=== PATIENT | male | born 1950 | race Caucasian/White ===

== ENCOUNTER → 2019-09-04 09:00 | Outpatient (BNVA) | payer MEDICARE, SELFPAY | PROVIDERS: Family Provider Nurse Practitioner; PCP Nurse Practitioner; Visit Provider Urology | DX: R97.20 Elevated prostate specific antigen [PSA] (principal); N99.89 Other postprocedural complications and disorders of genitourinary system | CPT/HCPCS: 81001 ==

== ENCOUNTER → 2020-02-02 10:12 | Outpatient (BNVA) | payer MEDICARE, SELFPAY | PROVIDERS: Family Provider Nurse Practitioner; PCP Nurse Practitioner; Visit Provider Nurse Practitioner Family | DX: E78.5 Hyperlipidemia, unspecified (principal); I10 Essential (primary) hypertension; E11.9 Type 2 diabetes mellitus without complications; R97.20 Elevated prostate specific antigen [PSA] | CPT/HCPCS: 80053; 80061; 83036; 84153; 85025 ==

== ENCOUNTER → 2020-03-04 08:46 | Outpatient (BNVA) | payer MEDICARE, SELFPAY | PROVIDERS: Family Provider Nurse Practitioner; PCP Nurse Practitioner; Visit Provider Urology | DX: R97.20 Elevated prostate specific antigen [PSA] (principal) | CPT/HCPCS: 81001 ==

== ENCOUNTER → 2020-07-26 09:22 | Outpatient (BNVA) | payer MEDICARE, SELFPAY | PROVIDERS: Family Provider Nurse Practitioner; PCP Nurse Practitioner; Visit Provider Nurse Practitioner | DX: Z20.828 Contact with and (suspected) exposure to other viral communicable diseases (principal); E11.9 Type 2 diabetes mellitus without complications | CPT/HCPCS: 80053; 80061; 83036; 87635 ==

== ENCOUNTER → 2020-09-02 08:56 | Outpatient (BNVA) | payer MEDICARE, SELFPAY | PROVIDERS: Family Provider Nurse Practitioner; PCP Nurse Practitioner; Visit Provider Urology | DX: R97.20 Elevated prostate specific antigen [PSA] (principal); N40.0 Benign prostatic hyperplasia without lower urinary tract symptoms | CPT/HCPCS: 81003; 84153 ==

== ENCOUNTER → 2021-02-01 11:04 | Outpatient (BNVA) | payer MEDICARE, SELFPAY | PROVIDERS: Family Provider Nurse Practitioner; PCP Nurse Practitioner; Visit Provider Nurse Practitioner | DX: E11.9 Type 2 diabetes mellitus without complications (principal); E78.5 Hyperlipidemia, unspecified; I10 Essential (primary) hypertension; R97.20 Elevated prostate specific antigen [PSA] | CPT/HCPCS: 80053; 80061; 83036; 84153 ==

== ENCOUNTER → 2021-03-08 07:55 | Outpatient (BNVA) | payer MEDICARE, SELFPAY | PROVIDERS: Family Provider Nurse Practitioner; PCP Nurse Practitioner; Visit Provider Urology | DX: N40.0 Benign prostatic hyperplasia without lower urinary tract symptoms (principal); R97.20 Elevated prostate specific antigen [PSA] | CPT/HCPCS: 81003 ==

== ENCOUNTER → 2021-07-28 08:29 | Outpatient (BNVA) | payer MEDICARE, SELFPAY | PROVIDERS: Family Provider Nurse Practitioner; PCP Nurse Practitioner; Visit Provider Nurse Practitioner | DX: E11.9 Type 2 diabetes mellitus without complications (principal); I10 Essential (primary) hypertension; E78.5 Hyperlipidemia, unspecified; R97.20 Elevated prostate specific antigen [PSA] | CPT/HCPCS: 80053; 80061; 82043; 83036; 84153; 85025 ==

== ENCOUNTER → 2021-08-25 12:02 | Outpatient (BNVA) | payer MEDICARE, SELFPAY | PROVIDERS: Family Provider Nurse Practitioner; PCP Nurse Practitioner; Visit Provider Urology | DX: N40.1 Benign prostatic hyperplasia with lower urinary tract symptoms; R33.8 Other retention of urine; R97.20 Elevated prostate specific antigen [PSA]; N20.1 Calculus of ureter | CPT/HCPCS: 81003 ==

== ENCOUNTER 2021-08-27 00:41 | Emergency (ER) | payer MEDICARE, SELFPAY ==
[2021-08-27 00:54] VITALS: BP 126/63; PULSE 84; RESP 20; TEMP 36; O2SAT 94; BMI 27.9
--- NOTE | 2021-08-27 01:03 | W.ED.MALEGU ---
Documented by User: EMETERIO Burton 08/27/21 02:15 HPI - Male Genitourinary General: Chief complaint: Urogenital-Male Stated complaint: Cathader moved\Fever Blood in Urine Time Seen by Provider: 08/27/21 00:50 Source: patient and family Mode of arrival: ambulatory Limitations: no limitations History of Present Illness: HPI Narrative: Patient is a 70-year-old male who presents to ED today for concerns that his Velasquez catheter is not draining appropriately. Family states that Velasquez was placed approximately [address] Martinez after he began experiencing urinary retention. Dr. Martinez placed a 16 [place] coud? in his office. states earlier today she began noticing the urine in his bag was very dark brown in color. They contacted Dr. Martinez's office who called in a prescription for Levaquin which they have not filled. Family states a few hours ago she noticed the bag was no longer draining and urine was going around the Velasquez. She also noticed a clot near the urethral meatus. Family states he hasn't drank much fluids today. Family states he was messing the catheter earlier today and wonders if that could be why it's not draining. Complaint: other (velasquez issue) Onset (ago): hour(s) Associated symptoms: Deny nausea or vomiting Review of Systems Const: Denies: fever(s), chills, body aches, fatigue or malaise GI: Denies: abdominal pain, nausea, vomiting or diarrhea : Reports: other (dark brown urine; velasquez not draining appropriately); Denies: flank pain PFSH ED PFSH: Medical History AAA (abdominal aortic aneurysm) Acute urinary retention BPH loc w urin obs/LUTS Elevated PSA Hypertension Surgical History Status post cataract extraction and insertion of intraocular lens BILATERAL Family History Father , AT AGE 92 Hypertension Parkinson disease Mother , AT AGE 76-HEART ATTACK Diabetes Hypertension Stroke Sister Diabetes Brother Diabetes Social History Second hand smoke exposure: No Smoking risk assessment/counseling performed?: No Alcohol intake: never Desire information about alcohol rehabilitation?: No Counseling given: No Desire information about substance/drug rehabilitation?: No Counseling given: No Adopted: No Caregiver/support person: No Lives independently: Yes Household members: spouse Marital status: Number of children: 2 service: No Current occupational status: employed Current occupation: SELF EMPLOYED-FARMING Pets and animals: Yes History of recent travel: No Current gender identity: Male Physical Exam Const: COMMON NORMALS: no limitations and alert GENERAL APPEARANCE: cooperative and disheveled ORIENTATION/CONSCIOUSNESS: Yes awake, Yes oriented to person, Yes oriented to place and Yes oriented to time OTHER: patient is odorous GI: COMMON NORMALS: Normal to inspection, nondistended, normoactive bowel sounds present, Soft to palpation, non-tender, No hepatosplenomegaly present and no masses INSPECTION: Yes normal to inspection and Yes other (bladder not distended) PALPATION: Yes Soft to palpation and Yes No hepatosplenomegaly present : COMMON NORMALS: Yes no CVA tenderness BLADDER/KIDNEY EXAM: Yes no CVA tenderness OTHER: there is a small clot at uretral meatus; patient has a few mls of dark brown urine in velasquez leg bag; patient has soiled himself and there is fecal matter within his adult brief Back/Pelvis: COMMON NORMALS: no CVA tenderness Neuro: SENSORIUM/ORIENTATION: Yes alert, Yes oriented to person, Yes oriented to place and Yes oriented to time Course ED course: Will try irrigating/repositioning catheter. Family states it was difficult to get catheter inserted therefore I don't want to remove/attempt replacement if at all possible Vital Signs: Vital signs: Vital Signs Temperature 96.8 F L 08/27/21 00:54 Pulse Rate 84 08/27/21 00:54 Respiratory Rate 20 H 08/27/21 00:54 Blood Pressure 126/63 08/27/21 00:54 Pulse Oximetry 94 08/27/21 00:54 MDM - Male MDM Narrative: Medical decision making narrative: Catheter was irrigated by RN and large clot removed. Catheter was then manually irrigated until clear. Patient was given a liter of fluids and IV abx as his UA was overwhelmingly positive for UTI-will culture. Recommend he fill RX that Dr. Martinez called in (will write another one in case they have any issues filling it) and recommend lots of fluid intake during the day to help keep velasquez draining. Patient was checked on several times and velasquez continues to drain well with clear urine. Patient is not febrile or tachycardic. Mild white count at 13.3. BUN/Cr normal. Lab Data: Labs: Lab Results 08/27/21 08/27/21 08/27/21 01:04 01:04 01:21 WBC 13.3 10^3/uL H 10 ^3/uL (4.0-10.0) RBC 4.65 10^6/uL 10^6 /uL (4.1-5.3) Hgb 14.2 g/dL g/dL (11.7-16.6) Hct 42.7 % % (42.0-52.0) MCV 91.8 fl fl (80-94) MCH 30.5 pg pg (28.0-34.0) MCHC 33.3 g/dL g/dL (30.0-36.0) RDW 12.3 % % (12.1-15.1) Plt Count 140 10^3/cmm 10^3 /cmm (130-400) MPV 10.6 fL H fL (7.4-10.4) Neut % (Auto) 84.6 % % Lymph % (Auto) 7.9 % % [place] % (Auto) 6.5 % % Eos % (Auto) 0.0 % % Baso % (Auto) 0.3 % % Neut # (Auto) 11.24 10^3/uL H 1 0^3/uL (1.8-7.7) Lymph # (Auto) 1.1 10^3/uL 10^3/ uL (0.8-4.8) [place] # (Auto) 0.9 10^3/uL 10^3/ uL (0.2-0.9) Eos # (Auto) 0.0 10^3/uL 10^3/ uL (0.0-0.8) Baso # (Auto) 0.0 10^3/uL 10^3/ uL (0.0-0.1) Nucleated RBC % (a uto) 0 % % Nucleated RBCs # 0.0 /100WBC /100W BC Sodium 135 mmol/L L mmol /L (136-145) Potassium 3.5 mmol/L mmol/L (3.5-5.1) Chloride 99 mmol/L mmol/L (98-107) Carbon Dioxide 23 mmol/L mmol/L (22-29) Anion Gap 16.5 (5-19) BUN 22 mg/dL mg/dL (8-23) Creatinine 1.1 mg/dL mg/dL (0.7-1.2) GFR Calculation 66.4 mL/min L mL/ min (90-130) Glucose 154 mg/dL H mg/dL (65-115) Calculated Osmolal ity 286 mOsm/kg mOsm/ kg (285-295) Calcium 8.3 mg/dL L mg/dL (8.5-10.5) Total Bilirubin 0.3 mg/dL mg/dL (0.15-1.2) AST 19 U/L U/L (0-40) ALT 16 U/L U/L (0-41) Alkaline Phosphata se 56 IU/L IU/L (40-130) Total Protein 6.3 g/dL L g/dL (6.6-8.7) Albumin 4.0 g/dL g/dL (3.5-5.2) Globulin 2.3 g/dL g/dL (1.3-4.6) Urine Color Shantell (Yellow) Urine Appearance Sl cloudy A (CLEAR) Urine pH 5 (5-7) Ur Specific Gravit y 1.020 (1.005-1.030) Urine Protein 3+ H (Negative) Urine Glucose (UA) Norm (Normal) Urine Ketones 1+ H (Negative) Urine Blood 3+ H (Negative) Urine Nitrate Positive H (Negative) Urine Bilirubin 1+ H (Negative) Urine Urobilinogen 4 mg/dL H mg/dL (Negative) Ur Leukocyte Joselyn ase 2+ H (Negative) Urine RBC Too numerous to c nt /hpf H /hpf (0-2) Urine WBC Too numerous to c nt /hpf H /hpf (0-5) Ur Squamous Epith Cells 0-4 /hpf H /hpf (0-5) Amorphous Sediment Not Reportable Urine Bacteria 4+ /hpf H /hpf (NONE) Discharge Plan Discharge Patient Disposition: Home Clinical Impression: Catheter-associated urinary tract infection Qualifiers: Indwelling urinary catheter type: indwelling urethral catheter Encounter type: initial encounter Qualified Code(s): T83.511A - Infection and inflammatory reaction due to indwelling urethral catheter, initial encounter Complication of Velasquez catheter Qualifiers: Encounter type: initial encounter Qualified Code(s): T83.9XXA - Unspecified complication of genitourinary prosthetic device, implant and graft, initial encounter Condition: Stable Prescriptions: New levofloxacin 500 mg tablet 500 mg PO DAILY 7 Days Qty: 7 RF: 0 No Action multivitamin Tablet 1 tab PO QAM RF: 0 glucosamine HCl 500 mg tablet 500 mg PO QDAY RF: 0 urinozinc PO RF: 0 tamsulosin 0.4 mg capsule 0.4 mg PO BID Qty: 60 RF: 12 levofloxacin 500 mg tablet 500 mg PO DAILY Qty: 7 RF: 1 losartan-hydrochlorothiazide [Hyzaar] 50-12.5 mg tablet 1 tab PO QDAY Qty: 90 RF: 1 atorvastatin [Lipitor] 10 mg tablet 10 mg PO QDAY Qty: 90 RF: 1 Discharge Orders: Discharge ED (Routine); Ordered 08/27/21 Ordered By: Sanjuanita Fonseca Referrals: Dilma Vivar, ROBERT [Primary Care Provider] - Activity Restrictions/Additional Instructions: Please fill/start antibiotics tomorrow. Contact Dr. Martinez's office on Sunday to schedule follow-up visit. You need to return to the emergency department immediately for any further episodes of the Velasquez catheter not draining appropriately, severe abdominal/flank pain, fevers greater than 100.4, generally feeling unwell, inability to hold down your antibiotics, or any other concerns you may have. Coding Level of Care Code ED Ear Nose Throat Surgeon for Chg Fwd Exam Expanded Problem Focused Documented by User: Alex Castro DO 08/27/21 21:12 HPI - Male Genitourinary General: Chief complaint: Urogenital-Male Stated complaint: Cathader moved\Fever Blood in Urine Time Seen by Provider: 08/27/21 00:50 PFSH ED PFSH: Medical History AAA (abdominal aortic aneurysm) Acute urinary retention BPH loc w urin obs/LUTS Elevated PSA Hypertension Surgical History Status post cataract extraction and insertion of intraocular lens BILATERAL Family History Father , AT AGE 92 Hypertension Parkinson disease Mother , AT AGE 76-HEART ATTACK Diabetes Hypertension Stroke Sister Diabetes Brother Diabetes Social History Second hand smoke exposure: No Smoking risk assessment/counseling performed?: No Alcohol intake: never Desire information about alcohol rehabilitation?: No Counseling given: No Desire information about substance/drug rehabilitation?: No Counseling given: No Adopted: No Caregiver/support person: No Lives independently: Yes Household members: spouse Marital status: Number of children: 2 service: No Current occupational status: employed Current occupation: SELF EMPLOYED-FARMING Pets and animals: Yes History of recent travel: No Current gender identity: Male Course Vital Signs: Vital signs: Vital Signs Temperature 96.8 F L 08/27/21 00:54 Pulse Rate 84 08/27/21 00:54 Respiratory Rate 20 H 08/27/21 00:54 Blood Pressure 126/63 08/27/21 00:54 Pulse Oximetry 94 08/27/21 00:54 MDM - Male MDM Narrative: Medical decision making narrative: This patient was originally seen by Mrs. Fonseca?JEREMIAH Castro. I agree with her history, evaluation, and treatment. Lab Data: Labs: Lab Results 08/27/21 08/27/21 08/27/21 01:04 01:04 01:21 WBC 13.3 10^3/uL H 10 ^3/uL (4.0-10.0) RBC 4.65 10^6/uL 10^6 /uL (4.1-5.3) Hgb 14.2 g/dL g/dL (11.7-16.6) Hct 42.7 % % (42.0-52.0) MCV 91.8 fl fl (80-94) MCH 30.5 pg pg (28.0-34.0) MCHC 33.3 g/dL g/dL (30.0-36.0) RDW 12.3 % % (12.1-15.1) Plt Count 140 10^3/cmm 10^3 /cmm (130-400) MPV 10.6 fL H fL (7.4-10.4) Neut % (Auto) 84.6 % % Lymph % (Auto) 7.9 % % [place] % (Auto) 6.5 % % Eos % (Auto) 0.0 % % Baso % (Auto) 0.3 % % Neut # (Auto) 11.24 10^3/uL H 1 0^3/uL (1.8-7.7) Lymph # (Auto) 1.1 10^3/uL 10^3/ uL (0.8-4.8) [place] # (Auto) 0.9 10^3/uL 10^3/ uL (0.2-0.9) Eos # (Auto) 0.0 10^3/uL 10^3/ uL (0.0-0.8) Baso # (Auto) 0.0 10^3/uL 10^3/ uL (0.0-0.1) Nucleated RBC % (a uto) 0 % % Nucleated RBCs # 0.0 /100WBC /100W BC Sodium 135 mmol/L L mmol /L (136-145) Potassium 3.5 mmol/L mmol/L (3.5-5.1) Chloride 99 mmol/L mmol/L (98-107) Carbon Dioxide 23 mmol/L mmol/L (22-29) Anion Gap 16.5 (5-19) BUN 22 mg/dL mg/dL (8-23) Creatinine 1.1 mg/dL mg/dL (0.7-1.2) GFR Calculation 66.4 mL/min L mL/ min (90-130) Glucose 154 mg/dL H mg/dL (65-115) Calculated Osmolal ity 286 mOsm/kg mOsm/ kg (285-295) Calcium 8.3 mg/dL L mg/dL (8.5-10.5) Total Bilirubin 0.3 mg/dL mg/dL (0.15-1.2) AST 19 U/L U/L (0-40) ALT 16 U/L U/L (0-41) Alkaline Phosphata se 56 IU/L IU/L (40-130) Total Protein 6.3 g/dL L g/dL (6.6-8.7) Albumin 4.0 g/dL g/dL (3.5-5.2) Globulin 2.3 g/dL g/dL (1.3-4.6) Urine Color Shantell (Yellow) Urine Appearance Sl cloudy A (CLEAR) Urine pH 5 (5-7) Ur Specific Gravit y 1.020 (1.005-1.030) Urine Protein 3+ H (Negative) Urine Glucose (UA) Norm (Normal) Urine Ketones 1+ H (Negative) Urine Blood 3+ H (Negative) Urine Nitrate Positive H (Negative) Urine Bilirubin 1+ H (Negative) Urine Urobilinogen 4 mg/dL H mg/dL (Negative) Ur Leukocyte Joselyn ase 2+ H (Negative) Urine RBC Too numerous to c nt /hpf H /hpf (0-2) Urine WBC Too numerous to c nt /hpf H /hpf (0-5) Ur Squamous Epith Cells 0-4 /hpf H /hpf (0-5) Amorphous Sediment Not Reportable Urine Bacteria 4+ /hpf H /hpf (NONE) Discharge Plan Discharge Patient Disposition: Home Clinical Impression: Catheter-associated urinary tract infection Qualifiers: Indwelling urinary catheter type: indwelling urethral catheter Encounter type: initial encounter Qualified Code(s): T83.511A - Infection and inflammatory reaction due to indwelling urethral catheter, initial encounter Complication of Velasquez catheter Qualifiers: Encounter type: initial encounter Qualified Code(s): T83.9XXA - Unspecified complication of genitourinary prosthetic device, implant and graft, initial encounter Condition: Stable Prescriptions: New levofloxacin 500 mg tablet 500 mg PO DAILY 7 Days Qty: 7 RF: 0 No Action multivitamin Tablet 1 tab PO QAM RF: 0 glucosamine HCl 500 mg tablet 500 mg PO QDAY RF: 0 urinozinc PO RF: 0 tamsulosin 0.4 mg capsule 0.4 mg PO BID Qty: 60 RF: 12 levofloxacin 500 mg tablet 500 mg PO DAILY Qty: 7 RF: 1 losartan-hydrochlorothiazide [Hyzaar] 50-12.5 mg tablet 1 tab PO QDAY Qty: 90 RF: 1 atorvastatin [Lipitor] 10 mg tablet 10 mg PO QDAY Qty: 90 RF: 1 Discharge Orders: Discharge ED (Routine); Ordered 08/27/21 Ordered By: Sanjuanita Fonseca Referrals: Dilma Vivar, ADMINISTRATIVE SUPPORT MANAGER-C [Primary Care Provider] - Activity Restrictions/Additional Instructions: Please fill/start antibiotics tomorrow. Contact Dr. Martinez's office on Sunday to schedule follow-up visit. You need to return to the emergency department immediately for any further episodes of the Velasquez catheter not draining appropriately, severe abdominal/flank pain, fevers greater than 100.4, generally feeling unwell, inability to hold down your antibiotics, or any other concerns you may have. Coding Level of Care Code ED Ear Nose Throat Surgeon for Chg Fwd Exam Expanded Problem Focused
[2021-08-27 01:09] LABS: Basophils % 0.3 %; Hematocrit 42.7 % (42.0-52.0); Hemoglobin 14.2 g/dL (11.7-16.6); Lymphocytes # 1.1 10^3/uL (0.8-4.8); Lymphocytes % 7.9 %; Mean Corpuscular HGB Conc 33.3 g/dL (30.0-36.0); Mean Corpuscular Hemoglobin 30.5 pg (28.0-34.0); Mean Corpuscular Volume 91.8 fl (80-94); Mean Platelet Volume 10.6 fL (7.4-10.4); Monocytes # 0.9 10^3/uL (0.2-0.9); Monocytes % 6.5 %; Neutrophils # 11.24 10^3/uL (1.8-7.7); Neutrophils % 84.6 %; Nucleated Red Blood Cells % 0 %; Platelet Count 140 10^3/cmm (130-400); Red Blood Count 4.65 10^6/uL (4.1-5.3); Red Cell Distribution Width 12.3 % (12.1-15.1); White Blood Count 13.3 10^3/uL (4.0-10.0)
[2021-08-27] MEDS: sodium chloride 0.9% 1,000 ML 999 ML IV ×2 (01:20→02:22)
[2021-08-27 01:35] LABS: Alanine Aminotransferase 16 U/L (0-41); Alkaline Phosphatase 56 IU/L (40-130); Anion Gap 16.5 (5-19); Aspartate Amino Transferase 19 U/L (0-40); Blood Urea Nitrogen 22 mg/dL (8-23); Calcium 8.3 mg/dL (8.5-10.5); Carbon Dioxide 23 mmol/L (22-29); Chloride 99 mmol/L (98-107); Globulin 2.3 g/dL (1.3-4.6); Glomerular Filtration Rate 66.4 mL/min (90-130); Glucose 154 mg/dL (65-115); Osmolality Calculated 286 mOsm/kg (285-295); Potassium 3.5 mmol/L (3.5-5.1); Sodium 135 mmol/L (136-145); Total Bilirubin 0.3 mg/dL (0.15-1.2); Total Protein 6.3 g/dL (6.6-8.7)
[2021-08-27 02:01] LABS: Add Urine Microscopic? YES; Bilirubin Urine 1+ (Negative); Blood Urine 3+ (Negative); Glucose Urine UA Norm (Normal); Ketones Urine 1+ (Negative); Leukocyte Esterase Urine 2+ (Negative); Nitrate Urine Positive (Negative); Protein Urine 3+ (Negative); Urine Color Amber (Yellow); Urobilinogen Urine 4 mg/dL (Negative); pH Urine 5 (5-7)
[2021-08-27 02:08] LABS: Add Urine Culture? Yes; Bacteria Urine 4+ /hpf; RBC Urine TOO NUMEROUS TO CNT /hpf (0-2); Squamous Epithelial Cell Urine 0-4 /hpf (0-5); WBC Urine TOO NUMEROUS TO CNT /hpf (0-5)
[2021-08-27] MEDS: levofloxacin-dextrose 5 % 500 MG/100 ML PREMIX 100 MG IV (02:17)
== END 2021-08-27 03:25 | disposition home or self-care (01) ==
PROVIDERS: Emergency Provider Physician Assistant; PCP Nurse Practitioner
DX: T83.511A Infection and inflammatory reaction due to indwelling urethral catheter, initial encounter (principal); T83.098A Other mechanical complication of other urinary catheter, initial encounter; Y73.8 Miscellaneous gastroenterology and urology devices associated with adverse incidents, not elsewhere classified; I71.4 Abdominal aortic aneurysm, without rupture; N40.1 Benign prostatic hyperplasia with lower urinary tract symptoms; I10 Essential (primary) hypertension
CPT/HCPCS: 80053; 81001; 85025; 87077; 87086; 87186; 96361; 96365; 99283; J1956; J7030

== ENCOUNTER → 2021-10-21 08:14 | Outpatient (BNVA) | payer MEDICARE, SELFPAY | PROVIDERS: PCP Nurse Practitioner; Visit Provider Urology | DX: R33.8 Other retention of urine (principal) | CPT/HCPCS: 81003 ==

== ENCOUNTER → 2022-01-26 08:21 | Outpatient (BNVA) | payer MEDICARE, SELFPAY | PROVIDERS: PCP Nurse Practitioner; Visit Provider Nurse Practitioner | DX: E11.9 Type 2 diabetes mellitus without complications (principal); E78.5 Hyperlipidemia, unspecified; I10 Essential (primary) hypertension; H61.22 Impacted cerumen, left ear; R97.20 Elevated prostate specific antigen [PSA] | CPT/HCPCS: 80053; 80061; 82043; 83036; 84153 ==

== ENCOUNTER → 2022-03-02 07:39 | Outpatient (BNVA) | payer MEDICARE, SELFPAY | PROVIDERS: PCP Nurse Practitioner; Visit Provider Urology | DX: N40.1 Benign prostatic hyperplasia with lower urinary tract symptoms (principal); R97.20 Elevated prostate specific antigen [PSA] | CPT/HCPCS: 51798; 81003; 99213 ==

== ENCOUNTER → 2022-07-20 08:24 | Outpatient (BNVA) | payer MEDICARE, SELFPAY | PROVIDERS: PCP Nurse Practitioner; Visit Provider Nurse Practitioner | DX: E11.9 Type 2 diabetes mellitus without complications (principal); R97.20 Elevated prostate specific antigen [PSA]; E78.5 Hyperlipidemia, unspecified; I10 Essential (primary) hypertension; Z23 Encounter for immunization | CPT/HCPCS: 80053; 80061; 83036; 84153 ==

== ENCOUNTER → 2022-08-31 08:01 | Outpatient (BNVA) | payer MEDICARE, SELFPAY | PROVIDERS: PCP Nurse Practitioner; Visit Provider Urology | DX: N40.1 Benign prostatic hyperplasia with lower urinary tract symptoms (principal); R97.20 Elevated prostate specific antigen [PSA] | CPT/HCPCS: 51798; 81003; 99213 ==

== ENCOUNTER → 2022-10-18 16:51 | Outpatient (BNVA) | payer MEDICARE, SELFPAY | PROVIDERS: PCP Nurse Practitioner; Visit Provider Nurse Practitioner | DX: J02.9 Acute pharyngitis, unspecified (principal) | CPT/HCPCS: 87071; 87880 ==

== ENCOUNTER 2022-12-10 09:19 | Emergency (ER) | payer MEDICARE, SELFPAY ==
[2022-12-10 09:43] VITALS: BP 154/83; PULSE 76; RESP 16; TEMP 36.8; O2SAT 96; BMI 27.1
--- NOTE | 2022-12-10 10:13 | ED_ITS ---
HPI - Male Genitourinary General: Chief complaint: Urogenital-Male Stated complaint: cant urinate Time Seen by Provider: 12/10/22 09:52 History of Present Illness: Patient brought into the ER with complaints of difficulty urinating. Was urinating yesterday but today he is unable to urinate. Patient has history of the same symptoms. He has catheters at home to perform straight caths. The patient catheterize himself this morning and was a lot of blood. Patient has seen Dr. Martinez in the past for this exact same reason. Approximately 1 year ago he had bladder irrigation in ER and was discharged home and has been able ever since. Complaint: other (Hematuria possible urinary retention) Onset (ago): day(s) (Today) Duration: constant Relieving factors: none Exacerbating factors: none Associated symptoms: Reports hematuria and urinary retention; Deny nausea or vomiting Review of Systems General: Reports: 10 or more systems reviewed and unremarkable except in HPI and below Eyes: Denies: change in vision or photophobia ENMT: Denies: throat pain or odynophagia Card: Denies: chest pain, palpitations or irregular heart rhythm Resp: Denies: dyspnea, productive cough or non-productive cough GI: Reports: diarrhea; Denies: abdominal pain, nausea or vomiting : Reports: hematuria Musc: Denies: neck pain or back pain Skin/Breast: Denies: rash Neuro: Denies: headache(s) or numbness in extremities PFSH ED PFSH: Medical History AAA (abdominal aortic aneurysm) Acute urinary retention BPH loc w urin obs/LUTS Elevated PSA Hypertension Surgical History Status post cataract extraction and insertion of intraocular lens BILATERAL Family History Father , AT AGE 92 Hypertension Parkinson disease Mother , AT AGE 76-HEART ATTACK Diabetes Hypertension Stroke Sister Diabetes Brother Diabetes Social History Smoking and tobacco status: never smoked Second hand smoke exposure: No Smoking risk assessment/counseling performed?: No Alcohol intake: never Desire information about alcohol rehabilitation?: No Counseling given: No Substance/Drug Use: never Desire information about substance/drug rehabilitation?: No Counseling given: No Adopted: No Caregiver/support person: No Lives independently: Yes Household members: spouse Marital status: Number of children: 2 service: No Current occupational status: employed Current occupation: SELF EMPLOYED-FARMING Pets and animals: Yes Do you think of yourself as: Straight/Heterosexual Current gender identity: Male Physical Exam Const: COMMON NORMALS: no acute distress, average body habitus, patient oriented x3, no limitations, healthy appearing, alert and well nourished HENMT: COMMON NORMALS: normocephalic, atraumatic, hearing grossly normal bilaterally, external ears normal, Normal external nose present and moist oral mucous membranes HEAD & SCALP: normocephalic and atraumatic NOSE: Normal external nose present EXTERNAL EAR: Yes external ears normal Eye: COMMON NORMALS: Equal, round and reactive pupils present, EOMs intact bilaterally, conjunctivae normal and no scleral icterus CONJUNCTIVA: Yes conjunctivae normal PUPIL: Yes Equal, round and reactive pupils present Neck/C-Spine: COMMON NORMALS: full ROM, no lymphadenopathy, supple, no meningeal signs, no JVD and Thyroid normal THYROID: Thyroid normal Chest: COMMONS NORMALS: normal inspection of the chest and normal palpation of entire chest wall Resp: COMMON NORMALS: normal respiratory effort, No retractions, No use of accessory muscles and clear to auscultation bilaterally AUSCULTATION: clear to auscultation bilaterally Cardio: COMMON NORMALS: no JVD, regular rate, regular rhythm, S1 normal heart sound present, S2 normal heart sound present, No gallops present (Cardio), No clicks present (Cardio), No murmurs present (Cardio) and No rub (Cardio) RATE: regular rate RHYTHM: regular rhythm HEART SOUNDS: S1 normal heart sound present and S2 normal heart sound present GI: COMMON NORMALS: Normal to inspection, nondistended, normoactive bowel sounds present, Soft to palpation, non-tender, No hepatosplenomegaly present, no masses and no bruits PALPATION: Yes Soft to palpation and Yes No hepatosplenomegaly present Neuro: COMMON NORMALS: patient oriented x3 SENSORIUM/ORIENTATION: Yes alert MENINGEAL SIGNS: Yes no meningeal signs Course Vital Signs: Vital signs: Vital Signs Temperature 98.2 F 12/10/22 09:43 Pulse Rate 83 12/10/22 13:00 Respiratory Rate 16 12/10/22 13:00 Blood Pressure 112/65 12/10/22 13:00 Pulse Oximetry 92 12/10/22 13:00 Oxygen Delivery Me thod Room Air 12/10/22 13:00 MDM - Male Medical Decision Making Nursing tried to insert Xie catheter met with resistance and pain. Dr. Martinez was consulted who came to the ER performed a cystoscopy with successful catheterization of the bladder and drainage of a large amount of urine. Patient felt immediately better. Dr. Martinez gave him orders to follow-up with him in approximately 1 week. Differential Diagnosis Likely urinary tract infection and acute retention of urine; Unlikely priapism Medical Records I reviewed the patient's medical records. Lab Data I reviewed the patient's lab results. 12/10/22 10:40 12/10/22 10:40 Laboratory Results WBC 8.3 10^3/uL (4.0-10.0) 12/10/22 10:40 RBC 5.08 10^6/uL (4.1-5.3) 12/10/22 10:40 Hgb 15.2 g/dL (11.7-16.6) 12/10/22 10:40 Hct 46.5 % (42.0-52.0) 12/10/22 10:40 MCV 91.5 fl (80-94) 12/10/22 10:40 MCH 29.9 pg (28.0-34.0) 12/10/22 10:40 MCHC 32.7 g/dL (30.0-36.0) 12/10/22 10:40 RDW 12.4 % (12.1-15.1) 12/10/22 10:40 Plt Count 177 10^3/cmm (130-400) 12/10/22 10:40 MPV 10.6 fL (7.4-10.4) H 12/10/22 10:40 Neut % (Auto) 84.3 % 12/10/22 10:40 Lymph % (Auto) 8.8 % 12/10/22 10:40 Angelina % (Auto) 4.4 % 12/10/22 10:40 Eos % (Auto) 1.6 % 12/10/22 10:40 Baso % (Auto) 0.4 % 12/10/22 10:40 Neut # (Auto) 7.04 10^3/uL (1.8-7.7) 12/10/22 10:40 Lymph # (Auto) 0.7 10^3/uL (0.8-4.8) L 12/10/22 10:40 Angelina # (Auto) 0.4 10^3/uL (0.2-0.9) 12/10/22 10:40 Eos # (Auto) 0.1 10^3/uL (0.0-0.8) 12/10/22 10:40 Baso # (Auto) 0.0 10^3/uL (0.0-0.1) 12/10/22 10:40 Nucleated RBC % (auto) 0 % 12/10/22 10:40 Nucleated RBCs # 0.0 /100WBC 12/10/22 10:40 PT 12.90 SECONDS (12.1-14.9) 12/10/22 10:40 INR 0.95 (0.8-1.2) 12/10/22 10:40 Sodium 141 mmol/L (136-145) 12/10/22 10:40 Potassium 4.1 mmol/L (3.5-5.1) 12/10/22 10:40 Chloride 104 mmol/L (98-107) 12/10/22 10:40 Carbon Dioxide 26 mmol/L (22-29) 12/10/22 10:40 Anion Gap 15.1 (5-19) 12/10/22 10:40 BUN 18 mg/dL (8-23) 12/10/22 10:40 Creatinine 0.9 mg/dL (0.7-1.2) 12/10/22 10:40 GFR Calculation Not Reportable 12/10/22 10:40 Glucose 97 mg/dL (65-115) 12/10/22 10:40 Calculated Osmolality 294 mOsm/kg (285-295) 12/10/22 10:40 Calcium 9.6 mg/dL (8.5-10.5) 12/10/22 10:40 Total Bilirubin 0.4 mg/dL (0.15-1.2) 12/10/22 10:40 AST 23 U/L (0-40) 12/10/22 10:40 ALT 19 U/L (0-41) 12/10/22 10:40 Alkaline Phosphatase 74 U/L (40-130) 12/10/22 10:40 Total Protein 7.0 g/dL (6.6-8.7) 12/10/22 10:40 Albumin 4.5 g/dL (3.5-5.2) 12/10/22 10:40 Globulin 2.5 g/dL (1.3-4.6) 12/10/22 10:40 Urine Color Shantell (Yellow) 12/10/22 12:13 Urine Appearance Hazy (CLEAR) A 12/10/22 12:13 Urine pH 5 (5-7) 12/10/22 12:13 Ur Specific [place] 1.020 (1.005-1.030) 12/10/22 12:13 Urine Protein 1+ (Negative) H 12/10/22 12:13 Urine Glucose (UA) Norm (Normal) 12/10/22 12:13 Urine Ketones Negative (Negative) 12/10/22 12:13 Urine Blood 3+ (Negative) H 12/10/22 12:13 Urine Nitrate Negative (Negative) 12/10/22 12:13 Urine Bilirubin Neg (Negative) 12/10/22 12:13 Urine Urobilinogen Norm mg/dL (Negative) 12/10/22 12:13 Ur Leukocyte Esterase Negative (Negative) 12/10/22 12:13 Urine RBC Too numerous to cnt /hpf (0-2) H 12/10/22 12:13 Urine WBC 0-4 /hpf (0-5) H 12/10/22 12:13 Ur Squamous Epith Cells None /hpf (0-5) 12/10/22 12:13 Amorphous Sediment Not Reportable 12/10/22 12:13 Urine Bacteria 1+ /hpf (NONE) H 12/10/22 12:13 Discharge Plan Discharge Patient Disposition: Home Clinical Impression: Acute urinary retention Condition: Stable Prescriptions: New finasteride 5 mg tablet 5 mg PO DAILY Qty: 90 3RF Continued multivitamin Tablet 1 tab PO QAM glucosamine HCl 500 mg tablet 500 mg PO QAM Lipitor 10 mg tablet 10 mg PO QAM tamsulosin 0.4 mg capsule 0.4 mg PO BID Hyzaar 50-12.5 mg tablet 1 tab PO QAM Discharge Orders: Discharge ED (Routine); Ordered 12/10/22 Ordered By: Archie Martinez Referrals: Dilma Vivar, FOOD AND BEVERAGE SERVICE MANAGER-C [Primary Care Provider] - Archie Martinez MD [Physician] - 12/14/22 (Possible cystoscopy voiding trial) Discharge Diet: Advance as tolerated Discharge Activity: Limit activity as instructed Patient Instructions: Opioid Safety, Pain Management Activity Restrictions/Additional Instructions: Urology instructions: 1. Avoid lifting >10 pounds until reevaluated in the clinic 2. We will maintain Xie catheter until follow-up in the clinic. 3. If the catheter becomes occluded you can irrigate with the syringe and fluid provided. Return to the emergency department for occlusion that cannot be cleared at home. 4. Please call my office at [phone] to schedule appointment for next week. 5. A new prescription of FINASTERIDE 5 mg daily was sent to [facility]. Please fill it tomorrow and start it. In the long run it should help avoid recurrent retention and may actually help with reducing prostate bleeding. Coding Level of Care Code ED [employer] Developer for Catarina Colvin
[2022-12-10 11:00] LABS: Basophils % 0.4 %; Eosinophils # 0.1 10^3/uL (0.0-0.8); Eosinophils % 1.6 %; Hematocrit 46.5 % (42.0-52.0); Hemoglobin 15.2 g/dL (11.7-16.6); Lymphocytes # 0.7 10^3/uL (0.8-4.8); Lymphocytes % 8.8 %; Mean Corpuscular HGB Conc 32.7 g/dL (30.0-36.0); Mean Corpuscular Hemoglobin 29.9 pg (28.0-34.0); Mean Corpuscular Volume 91.5 fl (80-94); Mean Platelet Volume 10.6 fL (7.4-10.4); Monocytes # 0.4 10^3/uL (0.2-0.9); Monocytes % 4.4 %; Neutrophils # 7.04 10^3/uL (1.8-7.7); Neutrophils % 84.3 %; Nucleated Red Blood Cells % 0 %; Platelet Count 177 10^3/cmm (130-400); Red Blood Count 5.08 10^6/uL (4.1-5.3); Red Cell Distribution Width 12.4 % (12.1-15.1); White Blood Count 8.3 10^3/uL (4.0-10.0)
[2022-12-10 11:11] LABS: INR 0.95 (0.8-1.2)
[2022-12-10 11:23] LABS: Alanine Aminotransferase 19 U/L (0-41); Albumin Level 4.5 g/dL (3.5-5.2); Alkaline Phosphatase 74 U/L (40-130); Aspartate Amino Transferase 23 U/L (0-40); Blood Urea Nitrogen 18 mg/dL (8-23); Calcium 9.6 mg/dL (8.5-10.5); Carbon Dioxide 26 mmol/L (22-29); Chloride 104 mmol/L (98-107); Globulin 2.5 g/dL (1.3-4.6); Glucose 97 mg/dL (65-115); Osmolality Calculated 294 mOsm/kg (285-295); Sodium 141 mmol/L (136-145); Total Bilirubin 0.4 mg/dL (0.15-1.2)
[2022-12-10 11:30] LABS: Anion Gap 15.1 (5-19); Potassium 4.1 mmol/L (3.5-5.1)
--- NOTE | 2022-12-10 11:33 | PC.NURSE ---
ATTEMPTED TO PLACE TORRE CATHETER IN PT AND WAS UNSUCCESSFUL. NOTIFIED DR. ARCHIBALD HE VERBALIZED UNDERSTANDING NO FURTHER ORDERS.
--- NOTE | 2022-12-10 11:35 | PM.CONSULT ---
Providers/Reason For Consult Consulting Physician/Specialty*: Martinez/urology Reason for Consult*: Urinary retention, inability to pass catheter Requesting Physician: Dr. Salmeron Primary Care Provider: ROBERT Mariano History of Present Illness History of Present Illness Brando Galindo is a 72 year old male well-known to me for history of chronic urinary retention secondary to very large prostate and longstanding elevated PSA. In August 2021 he developed acute urinary retention. A cystoscopy demonstrated trilobar enlargement of the prostate with some intravesical protrusion of the median lobe. No urethral abnormality identified. Bladder was drained with a 16 Uzbek coud? catheter at that time and he was placed on TAMSULOSIN. Successful only transient need to cath due to resolution of elevated PVRs essentially within a month. Since then he really has not required additional self-catheterization. Was continued on the TAMSULOSIN. This emergency room department visit occurred with the development of urinary retention last night and difficulty passing a catheter. He had some gross blood per urethra. Attempts at passing a 20 Uzbek hematuria catheter were unsuccessful by the staff. I was consulted for further evaluation. Patient reported that he has not really voided any significant amount of urine over the last 18 hours. Was quite uncomfortable due to bladder distention. Prior to this event he had not had any difficulty requiring self-catheterization. The symptoms began abruptly. Yesterday he was voiding fine but when he woke up last night he was not able to go. I expect he probably had over distention. Physical exam revealed a palpable bladder which was tender. He had bloody discharge/clots from the urethral meatus. No evidence of any perineal hematoma, etc. Normal scrotum and scrotal contents. Recommended bedside cystoscopy PROCEDURE: CYSTOSCOPY, CLOT EVACUATION Patient was prepped and draped in the usual sterile fashion supine position. Draped with an extremity drape. 2% lidocaine jelly was instilled into the urethra for anesthesia. Prior to this some clot was manipulated from the urethra. Scope was passed under direct vision. There was a small false passage just distal to the sphincter. Within the prostatic lumen there also appeared to be a posterior floor false passage. The scope was manipulated anterior over his intravesically protruding median lobe into the bladder which was quite distended. There were clots in the bladder which were manually irrigated out. Bladder was drained. No active bleeding noted within the bladder A guidewire was passed through the scope into the bladder. An 18 Uzbek three-way Trey Couvelaire catheter was converted to a little traverse tip catheter and then passed over the wire into the bladder. Catheter immediately drained bloody urine. 30 cc was placed in the balloon. Further irrigation was conducted with residual clots returned. Approximately 800 cc PVR noted Urine was not completely clear after that but it was felt to be safe. Recommendations: 1. Maintain Xie catheter 2. Hugely increase fluid intake to create brisk urine output to help avoid clots 3. Return to the emergency department for clot occlusion of the catheter at which point he would probably require admission with CBI. 4. Follow-up next week for voiding trial and likely repeat cystoscopy to assess for healing. 5. Initiate FINASTERIDE 5 mg daily. Review of Systems Const: Denies: fever(s) or chills Eyes: Denies: change in vision ENMT: Reports: other (Chronically hard of healing) Card: Denies: chest pain or palpitations Resp: Denies: dyspnea or wheezing GI: Reports: abdominal pain; Denies: vomiting : Reports: difficulty urinating, difficulty starting urination and other (Bloody urethral discharge); Denies: flank pain Musc: Denies: joint redness Skin/Breast: Denies: rash Neuro: Denies: difficulty walking, confusion, behavioral changes or Slurred speech present Psych: Reports: anxiety (Situational related to the urinary retention) Endo: Denies: flushing Papa/Lymph: Denies: easy bruising or easy bleeding All/Imm: Denies: urticaria Medications/Allergies Home Medications Medication Instructions Recorded Confirmed Last Taken Type glucosamine HCl 500 mg tablet 500 mg PO QAM 09/04/19 12/10/22 12/10/22 08:00 History multivitamin 1 tab PO QAM 09/04/19 12/10/22 Unknown History atorvastatin 10 mg tablet (Lipitor) 10 mg PO QAM 12/10/22 12/10/22 12/10/22 08:00 History finasteride 5 mg tablet 5 mg PO DAILY #90 tabs 12/10/22 Unknown Rx losartan 50 mg-hydrochlorothiazide 1 tab PO QAM 12/10/22 12/10/22 12/10/22 08:00 History 12.5 mg tablet (Hyzaar) tamsulosin 0.4 mg capsule 0.4 mg PO BID 12/10/22 12/10/22 12/09/22 History Allergies Allergy/AdvReac Type Severity Reaction Status Date / Time No Known Allergies Allergy Verified 12/10/22 11:45 PFSH Acute PFSH: Medical History AAA (abdominal aortic aneurysm) Acute urinary retention BPH loc w urin obs/LUTS Elevated PSA Hypertension Surgical History Status post cataract extraction and insertion of intraocular lens BILATERAL Family History Father , AT AGE 92 Hypertension Parkinson disease Mother , AT AGE 76-HEART ATTACK Diabetes Hypertension Stroke Sister Diabetes Brother Diabetes Social History Smoking and tobacco status: never smoked Second hand smoke exposure: No Smoking risk assessment/counseling performed?: No Alcohol intake: never Desire information about alcohol rehabilitation?: No Counseling given: No Substance/Drug Use: never Desire information about substance/drug rehabilitation?: No Counseling given: No Adopted: No Caregiver/support person: No Lives independently: Yes Household members: spouse Marital status: Number of children: 2 service: No Current occupational status: employed Current occupation: SELF EMPLOYED-FARMING Pets and animals: Yes Do you think of yourself as: Straight/Heterosexual Current gender identity: Male Vitals/I&O/Wt Last Vital Signs Temp 98.2 F 12/10/22 09:43 Pulse 76 12/10/22 09:43 Resp 16 12/10/22 09:43 BP 154/83 12/10/22 09:43 Pulse Ox 96 12/10/22 09:43 O2 Del Method Room Air 12/10/22 09:43 Weight last 48 hrs Weight 189 lb Physical Exam Const: COMMON NORMALS: alert and well nourished GENERAL APPEARANCE: well kempt and well developed ORIENTATION/CONSCIOUSNESS: not confused HENMT: COMMON NORMALS: normocephalic HEAD & SCALP: normal to inspection and normocephalic Eye: COMMON NORMALS: conjunctivae normal and no scleral icterus CONJUNCTIVA: Yes conjunctivae normal Neck/C-Spine: GENERAL: Yes normal visual inspection Resp: COMMON NORMALS: normal respiratory effort EFFORT & INSPECTION: Yes able to speak in complete sentences, No labored and No Actively coughing GI: OTHER: Tender suprapubic area. Bladder is palpable : COMMON NORMALS: Yes no CVA tenderness BLADDER/KIDNEY EXAM: Yes no CVA tenderness OTHER: Uncircumcised phallus. No phimosis. Blood at the meatus with some clots. Scrotum is grossly normal. Testicles and epididymis normal. Normal perineum and anus Back/Pelvis: COMMON NORMALS: no CVA tenderness Extremity: COMMON NORMALS: no clubbing, cyanosis or edema Neuro: COMMON NORMALS: no focal motor deficits SENSORIUM/ORIENTATION: Yes alert Psych: COMMON NORMALS: mental status grossly normal APPEARANCE: Yes grossly normal and Yes well kempt ATTITUDE: Yes calm and Yes engaged Skin: COMMON NORMALS: no rashes or lesions noted and no jaundice GENERAL SKIN EXAM: no rashes or lesions noted Data 12/10/22 10:40 12/10/22 10:40 A&P Assessment and plan (1) BPH loc w urin obs/LUTS: (2) Acute urinary retention: (3) Urethral false passage: (4) Transient iatrogenic urethral bleeding: Coding Level of Care Code Acute Code for [facility] Fwd Diagnoses BPH loc w urin obs/LUTS N40.1 Acute urinary retention R33.8 Urethral false passage N36.5 Transient iatrogenic urethral bleeding N36.8
[2022-12-10] MEDS: lidocaine 2% Urojet 20 mL TOPICAL (12:17)
[2022-12-10 12:41] LABS: Add Urine Microscopic? YES; Bilirubin Urine Neg (Negative); Blood Urine 3+ (Negative); Glucose Urine UA Norm (Normal); Ketones Urine Negative (Negative); Leukocyte Esterase Urine Negative (Negative); Nitrate Urine Negative (Negative); Protein Urine 1+ (Negative); RBC Urine TOO NUMEROUS TO CNT /hpf (0-2); Urine Appearance Hazy (CLEAR); Urine Color Amber (Yellow); Urobilinogen Urine Norm (Negative); WBC Urine 0-4 /hpf (0-5); pH Urine 5 (5-7)
[2022-12-10 12:42] LABS: Add Urine Culture? Yes; Bacteria Urine 1+ /hpf
[2022-12-10 13:00] VITALS: BP 112/65; PULSE 83; RESP 16; O2SAT 92
== END 2022-12-10 13:09 | disposition home or self-care (01) ==
PROVIDERS: Emergency Provider Emergency Medicine; PCP Nurse Practitioner
DX: R33.9 Retention of urine, unspecified (principal); I10 Essential (primary) hypertension
CPT/HCPCS: 80053; 81001; 85025; 85610; 87086; 99284

== ENCOUNTER → 2022-12-14 09:30 | Outpatient (BNVA) | payer MEDICARE, SELFPAY | PROVIDERS: PCP Nurse Practitioner; Visit Provider Urology | DX: R97.20 Elevated prostate specific antigen [PSA] (principal); N36.5 Urethral false passage; N36.8 Other specified disorders of urethra; N40.1 Benign prostatic hyperplasia with lower urinary tract symptoms; R33.8 Other retention of urine | CPT/HCPCS: 52000; 99213 ==

== ENCOUNTER → 2022-12-28 08:42 | Outpatient (BNVA) | payer MEDICARE, SELFPAY | PROVIDERS: PCP Nurse Practitioner; Visit Provider Nurse Practitioner | DX: E11.9 Type 2 diabetes mellitus without complications (principal); E78.5 Hyperlipidemia, unspecified; R97.20 Elevated prostate specific antigen [PSA]; I10 Essential (primary) hypertension | CPT/HCPCS: 80061; 81000; 82043; 83036; 84153 ==

== ENCOUNTER → 2023-01-23 07:24 | Outpatient (BNVA) | payer MEDICARE, SELFPAY | PROVIDERS: PCP Nurse Practitioner; Visit Provider Urology | DX: N40.1 Benign prostatic hyperplasia with lower urinary tract symptoms (principal); N13.8 Other obstructive and reflux uropathy; N36.8 Other specified disorders of urethra; R97.20 Elevated prostate specific antigen [PSA]; N36.5 Urethral false passage; R33.8 Other retention of urine | CPT/HCPCS: 51741; 51798; 81003; 99213 ==

== ENCOUNTER → 2023-06-21 08:18 | Outpatient (BNVA) | payer MEDICARE, SELFPAY | PROVIDERS: PCP Nurse Practitioner; Visit Provider Nurse Practitioner | DX: E11.9 Type 2 diabetes mellitus without complications (principal); E78.5 Hyperlipidemia, unspecified; I10 Essential (primary) hypertension; N40.1 Benign prostatic hyperplasia with lower urinary tract symptoms; Z12.5 Encounter for screening for malignant neoplasm of prostate; Z23 Encounter for immunization | CPT/HCPCS: 80053; 80061; 81000; 83036; G0103 ==

== ENCOUNTER → 2023-09-12 13:58 | Outpatient (BNVA) | payer MEDICARE, SELFPAY | PROVIDERS: PCP Nurse Practitioner; Visit Provider Nurse Practitioner | DX: M54.50 Low back pain, unspecified; M25.562 Pain in left knee; M25.552 Pain in left hip; M79.605 Pain in left leg; E55.9 Vitamin D deficiency, unspecified | CPT/HCPCS: 72100; 73502; 73552; 73562; 82306 ==

== ENCOUNTER → 2023-12-31 08:22 | Outpatient (BNVA) | payer MEDICARE, SELFPAY | PROVIDERS: PCP Nurse Practitioner; Visit Provider Nurse Practitioner | DX: E11.9 Type 2 diabetes mellitus without complications (principal); Z12.5 Encounter for screening for malignant neoplasm of prostate; E78.5 Hyperlipidemia, unspecified; N40.1 Benign prostatic hyperplasia with lower urinary tract symptoms; M16.12 Unilateral primary osteoarthritis, left hip | CPT/HCPCS: 80053; 80061; 81000; 83036; G0103 ==

== ENCOUNTER → 2024-06-16 08:24 | Outpatient (BNVA) | payer MEDICARE, SELFPAY | PROVIDERS: PCP Nurse Practitioner; Visit Provider Nurse Practitioner | DX: E11.9 Type 2 diabetes mellitus without complications (principal); R97.20 Elevated prostate specific antigen [PSA] | CPT/HCPCS: 80053; 80061; 81000; 83036; 84153 ==

== ENCOUNTER → 2024-12-02 16:19 | Outpatient (BNVA) | payer MEDICARE, SELFPAY | PROVIDERS: PCP Nurse Practitioner; Visit Provider Nurse Practitioner | DX: E11.9 Type 2 diabetes mellitus without complications (principal); R97.20 Elevated prostate specific antigen [PSA] | CPT/HCPCS: 80053; 80061; 81000; 83036; 84153 ==

== ENCOUNTER → 2025-05-26 08:40 | Outpatient (BNVA) | payer MEDICARE, SELFPAY | PROVIDERS: PCP Nurse Practitioner; Visit Provider Nurse Practitioner | DX: Z12.5 Encounter for screening for malignant neoplasm of prostate (principal); I10 Essential (primary) hypertension; E78.5 Hyperlipidemia, unspecified; N40.1 Benign prostatic hyperplasia with lower urinary tract symptoms; E11.9 Type 2 diabetes mellitus without complications | CPT/HCPCS: 80053; 80061; 81000; 83036; G0103 ==